=== PATIENT | female | born 1970 | race Caucasian/White ===

== ENCOUNTER 2022-12-16 09:28 | Outpatient (CLI) | payer BC, SELFPAY | END 2022-12-16 09:29 | disposition home or self-care (01) | PROVIDERS: PCP Physician Assistant; Visit Provider Family Medicine | DX: Z01.818 Encounter for other preprocedural examination (principal); E78.5 Hyperlipidemia, unspecified | CPT/HCPCS: 80048; 80061 ==

== ENCOUNTER 2022-12-30 06:51 | Outpatient (CLI) | payer BC, SELFPAY ==
--- NOTE | 2022-12-30 07:17 | W.ANESCHARGE ---
Anesthesia Charges Start Date/Time Anesthesia Start Date: 12/30/22 Anesthesia Start Time: 07:36 Stop Date/Time Anesthesia Stop Date: 12/30/22 Anesthesia Stop Time: 08:03
--- NOTE | 2022-12-30 08:09 | W.ANESCHARGE ---
Anesthesia Charges Start Date/Time Anesthesia Start Date: 12/30/22 Anesthesia Start Time: 07:36 Stop Date/Time Anesthesia Stop Date: 12/30/22 Anesthesia Stop Time: 08:03
== END 2022-12-30 06:52 | disposition home or self-care (01) ==
PROVIDERS: PCP Family Medicine; Visit Provider Internal Medicine
DX: Z12.11 Encounter for screening for malignant neoplasm of colon (principal); K63.5 Polyp of colon; K64.8 Other hemorrhoids
CPT/HCPCS: 45380; 811; 812; 88305; J2704

== ENCOUNTER 2023-07-14 13:45 | Outpatient (RCR) | payer BC, SELFPAY | END 2023-07-14 16:44 | disposition home or self-care (01) | PROVIDERS: PCP Family Medicine; Visit Provider Family Medicine | DX: M25.571 Pain in right ankle and joints of right foot (principal); G89.29 Other chronic pain; M62.81 Muscle weakness (generalized); Z51.89 Encounter for other specified aftercare | CPT/HCPCS: 97110; 97161 ==

== ENCOUNTER 2024-10-23 18:05 | Emergency (ER) | payer BC, SELFPAY ==
[2024-10-23 18:10] VITALS: BP 140/95; PULSE 77; RESP 18; TEMP 36.5; O2SAT 97; BMI 26.5
--- NOTE | 2024-10-23 18:27 | CRLHL7_ITS ---
For Patients: As a result of the Century Cures Act, medical imaging exams and procedure reports are released immediately into your electronic medical record. You may view this report before your referring provider. If you have questions, please contact your health care provider. INDICATION: Shortness of breath TECHNIQUE: Chest radiograph 2 views COMPARISON: 08/16/2021, 08/17/2021 FINDINGS: Mediastinum: The mediastinum is normal in appearance. The heart silhouette is normal in size and morphology. Lung: Both lungs are unremarkable in appearance. No sign of pleural effusion seen. No pneumothorax is identified. Bone and Soft tissue: Unremarkable for age. IMPRESSION: 1. No acute cardiopulmonary disease is seen. Dictated by: Juancho Belle MD @ 10/23/2024 19:15:03 (Electronically Signed)
[2024-10-23 19:04] LABS: PCR FLU A Negative PCR FLU A (Negative); PCR FLU B Negative PCR FLU B (Negative); PCR RSV POSITIVE PCR RSV (Negative); SARS PCR* Negative SARS-CoV-2 (Negative)
--- NOTE | 2024-10-23 19:14 | ED_ITS ---
HPI - General Adult General Time Seen by Provider: 19:14 Date Seen: 10/23/24 Chief complaint: Cough Stated complaint: cough, fever Time Seen by Provider: 10/23/24 19:13 Source: patient and RN notes reviewed Mode of arrival: ambulatory Limitations: no limitations History of Present Illness HPI narrative: This 54-year-old female is coming in with concern of coughing an illness for 6 days now. She became ill 6 days ago with a cough. She has had some fevers. Nothing recent for fevers. She is concerned about COVID, had contact with somebody who tested positive for COVID. She has a history of significant issues with COVID pneumonia historically. She states that she used albuterol with that, did help her. She is using NyQuil and that is helping her sleep. She is having coughing fits that a prolonged, makes it difficult to breathe. Her sister heard her on the phone during 1 of these coughing fits and recommended she be seen. Baseline she is having no shortness of breath, no chest pain. She has no baseline history of asthma. She does not feel like her lungs ever completely healed after COVID. Related Data Home Medications ?Medication ?Instructions ?Recorded ?Confirmed multivitamin 1 tab PO QDAY 12/15/22 10/23/24 vitamin D3 125 mcg (5,000 1 cap PO QDAY 12/16/22 10/23/24 unit)-vitamin K2 90 mcg capsule Previous Rx's ?Medication ?Instructions ?Recorded albuterol sulfate 90 mcg/actuation 2 puff inhalation Q4-6H PRN 10/23/24 aerosol inhaler shortness of breath or wheezing #8.5 grams prednisone 20 mg tablet 20 mg PO BID #10 tabs 10/23/24 Allergies Allergy/AdvReac Type Severity Reaction Status Date / Time No Known Drug Allergies Allergy Verified 10/23/24 18:17 Review of Systems Status of ROS: Reports: 6 or more systems reviewed and unremarkable except as noted in History and below [facility] Medical History Grieving ?F43.21 - Adjustment disorder with depressed mood (ICD-10) Hyperlipidemia ?E78.5 - Hyperlipidemia, unspecified (ICD-10) Uterine leiomyoma ?D25.9 - Leiomyoma of uterus, unspecified (ICD-10) Solitary kidney (11/11/13) Recurrent urinary tract infection ?N39.0 - Urinary tract infection, site not specified (ICD-10) Herniated lumbar intervertebral disc ?M51.26 - Other intervertebral disc displacement, lumbar region (ICD-10) Surgical History Status post wrist surgery ?Z98.890 - Other specified postprocedural states (ICD-10) History of ureter repair ?Z98.890 - Other specified postprocedural states (ICD-10) History of cardiac catheterization ?Z98.890 - Other specified postprocedural states (ICD-10) Family History Father Coronary artery disease Prostate cancer Maternal Grandmother Coronary artery disease High blood pressure Mother High blood pressure Social History Narrative: , manages [employer], nonsmoker Smoking Status: Never smoker Exam Const: Vital Signs, click to edit/add: Vital Signs - 24 hr 10/23/24 18:10 Temperature 97.7 F Pulse Rate [Right Pulse Oximeter] 77 Respiratory Rate 18 Blood Pressure [Ri ght Upper Arm] 140/95 H Pulse Oximetry 97 Oxygen Delivery Me thod Room Air This 54-year-old female is alert, interactive, no apparent distress. Baseline she has no issues breathing, no tachypnea, speech is normal, no hoarseness. Pupils equal round reactive, sclera clear. TMs normal translucency and light reflects. Oropharynx are mucosa, no exudates erythema. Lungs are clear, good air entry, no wheezing or crackles, no accessory muscle use, no tachypnea. CV regular rate and rhythm, no murmur, normal S1-S2, no S3-S4. Patient did start coughing while I was in there, has a very harsh bronchospastic type cough. Documenting provider has reviewed patient's vital signs: yes Course Course ED Course: Was able to review with patient that her chest x-ray showing no acute pathology, no evidence of pneumonia. Her triple swab is showing RSV. We did discuss that we do not have extensive studies with RSV in older adults. Given that she is 6 days in and having this bronchospastic type cough, do think we could try some steroids. She certainly can have an albuterol inhaler to see if this helps. We did review in children that there study showing that steroids and albuterol do not help basic population with RSV in these children. She is not in the beginning of her illness however and may have some inflammatory change that is present. There is no evidence or need for antibiotics at this time but she should watch for worsening. Vital Signs Vital signs: Initial Vital Signs Temperature 97.7 F 10/23/24 18:10 Temperature Source Temporal Artery Scan 10/23/24 18:10 Pulse Rate 77 10/23/24 18:10 Pulse Rhythm Regular 10/23/24 18:10 Pulse Strength 3+ Normal 10/23/24 18:10 Respiratory Rate 18 10/23/24 18:10 Blood Pressure 140/95 H 10/23/24 18:10 Blood Pressure Mean 110 H 10/23/24 18:10 Blood Pressure Position Sitting 10/23/24 18:10 Pulse Oximetry 97 10/23/24 18:10 Oxygen Delivery Method Room Air 10/23/24 18:10 Vital Signs Temperature 97.7 F 10/23/24 18:10 Pulse Rate 77 10/23/24 18:10 Respiratory Rate 18 10/23/24 18:10 Blood Pressure 140/95 H 10/23/24 18:10 Pulse Oximetry 97 10/23/24 18:10 Oxygen Delivery Method Room Air 10/23/24 18:10 Temperature 97.7 F 10/23/24 18:10 Pulse Rate 77 10/23/24 18:10 Respiratory Rate 18 10/23/24 18:10 Blood Pressure 140/95 H 10/23/24 18:10 Pulse Oximetry 97 10/23/24 18:10 Oxygen Delivery Method Room Air 10/23/24 18:10 Medical Decision Making Lab Data Lab results reviewed: Yes I reviewed the patient's lab results Labs: Lab Results 10/23/24 Range/Units 18:17 SARS-CoV-2 (PCR) Negative SARS-CoV-2 (Negative) Influenza Type A (PCR) Negative PCR FLU A (Negative) Influenza Type B (PCR) Negative PCR FLU B (Negative) RSV (PCR) POSITIVE PCR RSV A (Negative) Imaging Data Chest x-ray: Attestation: I have reviewed the pertinent imaging results. My impression: I see no acute pathology on my preliminary review of this chest x-ray, certainly no infiltrate. Radiologist's impression: Patient: GUANAKO LOZANO Facility:?[facility] Patient ID:?[id number] Site Patient ID:?[id number]. Site :?[id number] Study:?XRay-Chest 2V-10/23/2024 7:01:09 PM Ordering Physician:Mita Poon Final Report: INDICATION: Shortness of breath TECHNIQUE: Chest radiograph 2 views COMPARISON: 08/16/2021, 08/17/2021 FINDINGS: Mediastinum: The mediastinum is normal in appearance. The heart silhouette is normal in size and morphology. Lung: Both lungs are unremarkable in appearance. No sign of pleural effusion seen. No pneumothorax is identified. Bone and Soft tissue: Unremarkable for age. IMPRESSION: 1. No acute cardiopulmonary disease is seen. Dictated by: Juancho Belle MD @ 10/23/2024 19:15:03 (Electronic Signature) Discharge Plan Discharge Clinical Impression: RSV (respiratory syncytial virus infection) Qualifiers: RSV infection type: acute bronchitis Qualified Code(s): J20.5 - Acute bronchitis due to respiratory syncytial virus Patient Disposition: Home, Self-Care Condition: Stable Instructions: RSV (Respiratory Syncytial Virus) Infection (ED) Additional Instructions: Can try the steroids to see if it help diminish his some inflammation for you. We do not know if this will be helpful or not at this point your illness, UR 6 days in and do have significant harsh cough. I am certainly willing to have you try the anti-inflammatory properties of the prednisone to see if it helps. Can continue with NyQuil at bedtime. I have also written for an albuterol inhaler as this helped you through COVID. If you are not improving over the next week, have concerns for worsening at any point, please seek re-evaluation. Activity Level: Activity as Tolerated Prescriptions: New prednisone 20 mg tablet 20 mg PO BID Qty: 10 0RF albuterol sulfate 90 mcg/actuation HFA aerosol inhaler 2 puff inhalation Q4-6H PRN (Reason: shortness of breath or wheezing) Qty: 8.5 0RF No Action multivitamin Tablet 1 tab PO QDAY vitamin D3-vitamin K2 125-90 mcg capsule 1 cap PO QDAY Follow Up/Referrals: Dat Wu MD [Primary Care Provider] - Stand Alone Forms: [employer] Info Instructions
== END 2024-10-23 20:02 | disposition home or self-care (01) ==
LOC: ED 19:38
PROVIDERS: Emergency Provider Family Medicine; PCP Family Medicine
DX: J20.5 Acute bronchitis due to respiratory syncytial virus (principal)
CPT/HCPCS: 71046; 87631; 99283